=== PATIENT | male | born 1965 | race Caucasian/White ===

== ENCOUNTER → 2016-09-14 | Outpatient (REF) ==
[~2016-09-14] MED LIST: /LAMO10TA OR; /LAMO10TA PO; ABIL1TAB5 PO; ABIL400I IM; BENZ100C5 PO; BUDE150T PO; CELE40TA OR; CENTTAB47 PO; CHLORTHALIDONE; CHLORTHALIDONE PO; CIAL5TAB PO; CLAR10CA3 PO; COLA100C2 OR; EFFE150C OR; FISH300C2 OR; FISH500C PO; IBUP200T2 PO; INVE3TAB2 OR; INVE6TAB2 PO; INVE6TAB3 OR; LAMI1TAB7 PO; LORA10TA2 PO; MULTCAP PO; NICO21DI4 TD; OMEP20TA7 PO; OXCA150T OR; OXCA600T PO; PRAV40TA OR; PRAV40TA PO; PRIL20CA PO; PRIL20CA9 PO; SEROQUEL PO; TRAZ150T PO; TRAZ50TA2 PO; TRAZ50TA4 PO; VENL225T PO; VENL75TA2 PO; WELL100T PO; WELLTAB38 PO; ZIPR80CAP PO; ZYPR10TA PO; invega PO; nicorette PO
== END ==
LOC: M LAB 08:18
PROVIDERS: ATTEND Nurse Practitioner Adult Health
DX: Z02.1 Encounter for pre-employment examination (principal)

== ENCOUNTER → 2016-10-01 | Outpatient (CLI) | payer OTHER ==
--- NOTE | 2016-10-01 11:54 | REP ---
MR THORACIC SPINE WITHOUT CONTRAST: 10/01/2016 CLINICAL HISTORY: Mid-back pain. No known injury. COMPARISON. Lateral chest x-ray 06/14/2015. Cervical spine 07/17/2012. TECHNIQUE : Marker placed at the level of C7-T1 and confirmed by marine biologist images and x-rays in the cervical region showing fusion of C2 and C3. Sagittal T1, T2 and STIR images with axial T1-T2 sequences provided. These extend from C7-T1 through T12-L1. FINDINGS: The normal thoracic kyphosis is noted. Coronal images show very gentle levoconvex curve upper thoracic spine. Vertebral body heights and disc space heights are intact. There is no marrow signal abnormality and only mild loss of disc water signal at T7-T8 level. C7-T1, T1-2 and T2-3 levels are unremarkable. At T3-4, there is minimal right paracentral disc bulge not causing spinal or foraminal stenosis. At T4-5 through T12-L1, there is no disc bulge or herniation. There is no spinal or foraminal stenosis. IMPRESSION: 1. Right paracentral disc bulge at T3-4 not causing spinal or foraminal stenosis. No other finding of the thoracic spine. No intrinsic cord signal abnormality, syrinx, atrophy or mass. Conus terminates at L1. Signed by Romero Bynum MD 10/01/2016 05:06 P
== END ==
LOC: M RAD 09:58
PROVIDERS: ATTEND Nurse Practitioner Family
DX: M54.6 Pain in thoracic spine (principal); M79.1 Myalgia; M51.34 Other intervertebral disc degeneration, thoracic region

== ENCOUNTER → 2017-07-08 | Outpatient (REF) | payer OTHER ==
[~2017-07-08] MED LIST changes: +ABIL10TA9 PO; -ABIL1TAB5 PO; -INVE6TAB2 PO; +INVE6TAB3 PO; +TRAZ50TA11 PO; -TRAZ50TA4 PO
[2017-07-08 12:08] LABS: CHOLESTEROL LEVEL 136 MG/DL (<200); TRIGLYCERIDES LEVEL 112 MG/DL (<150)
== END ==
LOC: M SFHCPLAZ 09:44
PROVIDERS: ATTEND Family Medicine
DX: Z11.4 Encounter for screening for human immunodeficiency virus [HIV] (principal); Z13.220 Encounter for screening for lipoid disorders; Z11.59 Encounter for screening for other viral diseases; Z11.3 Encounter for screening for infections with a predominantly sexual mode of transmission; Z13.1 Encounter for screening for diabetes mellitus

== ENCOUNTER → 2018-01-12 | Outpatient (REF) | payer MEDICAID ==
[2018-01-12 12:06] LABS: HEMATOCRIT 43.4 % (42.0-52.0); HEMOGLOBIN 14.9 g/dl (13.5-17.5); MEAN CORPUSCULAR HEMOGLOBIN 31.8 pg (27.0-33.0); MEAN CORPUSCULAR HGB CONC 34.3 g/dl (32.0-36.5); MEAN CORPUSCULAR VOLUME 92.7 fl (80.0-96.0); PLATELET COUNT, AUTOMATED 312 10^3/uL (150-450); RED BLOOD COUNT 4.68 10^6/uL (4.30-6.10); RED CELL DISTRIBUTION WIDTH 12.3 % (11.5-14.5)
[2018-01-12 12:24] LABS: ESTIMATED AVERAGE GLUCOSE 103 MG/DL (60-110); HEMOGLOBIN A1c 5.2 %
[2018-01-12 12:34] LABS: ALBUMIN 3.8 GM/DL (3.2-5.2); ALBUMIN/GLOBULIN RATIO 0.97 (1.00-1.93); ALKALINE PHOSPHATASE 80 U/L (45-117); ALT/SGPT 19 U/L (12-78); ANION GAP 5 MEQ/L (8-16); AST/SGOT 15 U/L (7-37); BILIRUBIN,TOTAL 0.4 MG/DL (0.2-1.0); BLOOD UREA NITROGEN 12 MG/DL (7-18); CALCIUM LEVEL 9.1 MG/DL (8.5-10.1); CARBON DIOXIDE LEVEL 30 MEQ/L (21-32); CHLORIDE LEVEL 106 MEQ/L (98-107); CHOLESTEROL LEVEL 169 MG/DL (<200); CHOLESTEROL RISK RATIO 3.313 (<5); CREATININE FOR GFR 0.93 MG/DL (0.70-1.30); GLOMERULAR FILTRATION RATE > 60.0 (>56); GLUCOSE, FASTING 69 MG/DL (70-100); HDL CHOLESTEROL 51 MG/DL (>40); NON-HDL-C 118 MG/DL; POTASSIUM SERUM 4.3 MEQ/L (3.5-5.1); SODIUM LEVEL 141 MEQ/L (136-145); TOTAL PROTEIN 7.7 GM/DL (6.4-8.2); TRIGLYCERIDES LEVEL 125 MG/DL (<150)
== END ==
LOC: M SFHCPLAZ 10:12
DX: F20.3 Undifferentiated schizophrenia (principal)

== ENCOUNTER 2018-04-24 03:01 | Emergency (ER) | payer OTHER, MEDICAID, SELFPAY ==
[2018-04-24] MEDS: CETACAINE SPRAY 5GM TOP (03:30)
== END 2018-04-24 04:06 | disposition home or self-care (01) ==
LOC: M ED 03:01
DX: K08.89 Other specified disorders of teeth and supporting structures (principal); F33.9 Major depressive disorder, recurrent, unspecified; Z88.8 Allergy status to other drugs, medicaments and biological substances; Z79.899 Other long term (current) drug therapy
CPT/HCPCS: 64400

== ENCOUNTER 2018-05-12 09:24 | Outpatient (CLI) | payer OTHER | END 2018-05-17 | LOC: M SLEEP HO 09:24 | DX: G47.9 Sleep disorder, unspecified (principal) | CPT/HCPCS: G0399 ==

== ENCOUNTER 2018-07-08 10:29 | Day surgery (SDC) | payer OTHER ==
[~2018-07-08 10:29] MED LIST changes: -/LAMO10TA OR; -/LAMO10TA PO; -ABIL10TA9 PO; -ABIL400I IM; -BENZ100C5 PO; -BUDE150T PO; -CELE40TA OR; -CENTTAB47 PO; -CHLORTHALIDONE; -CHLORTHALIDONE PO; -CIAL5TAB PO; -CLAR10CA3 PO; -COLA100C2 OR; -EFFE150C OR; -FISH300C2 OR; -FISH500C PO; +GLUCAGON FOR INJ 1 MG VIAL (J1610) As Ordered; -IBUP200T2 PO; -INVE3TAB2 OR; -INVE6TAB3 OR; -INVE6TAB3 PO; -LAMI1TAB7 PO; +LIDOCAINE 2% INJ 100 MG/5 ML SDV (FOR ANES.) As Ordered; -LORA10TA2 PO; -MULTCAP PO; -NICO21DI4 TD; -OMEP20TA7 PO; -OXCA150T OR; -OXCA600T PO; -PRAV40TA OR; -PRAV40TA PO; -PRIL20CA PO; -PRIL20CA9 PO; +PROPOFOL 200 MG/20 ML VIAL As Ordered; -SEROQUEL PO; -TRAZ150T PO; -TRAZ50TA11 PO; -TRAZ50TA2 PO; -VENL225T PO; -VENL75TA2 PO; -WELL100T PO; -WELLTAB38 PO; -ZIPR80CAP PO; -ZYPR10TA PO; -invega PO; -nicorette PO
[2018-07-08] MEDS ORDERED: NS 1,000 ML IV (11:00)
[2018-07-08] MEDS ORDERED: fentaNYL 100 MCG/2 ML INJECTION (J3010) As Ordered (12:09)
== END 2018-07-08 13:17 | disposition home or self-care (01) ==
LOC: M OPP 10:29
DX: Z12.11 Encounter for screening for malignant neoplasm of colon (principal); D12.2 Benign neoplasm of ascending colon; K64.8 Other hemorrhoids; R12 Heartburn; K20.9 Esophagitis, unspecified; K21.9 Gastro-esophageal reflux disease without esophagitis; K44.9 Diaphragmatic hernia without obstruction or gangrene; M10.9 Gout, unspecified; F20.3 Undifferentiated schizophrenia; F33.9 Major depressive disorder, recurrent, unspecified; F17.210 Nicotine dependence, cigarettes, uncomplicated; F17.220 Nicotine dependence, chewing tobacco, uncomplicated; R06.83 Snoring; Z88.8 Allergy status to other drugs, medicaments and biological substances; Z79.899 Other long term (current) drug therapy
CPT/HCPCS: 45385

== ENCOUNTER → 2018-10-05 | Outpatient (REF) | payer OTHER ==
[~2018-10-05] MED LIST changes: +/LAMO10TA OR; +/LAMO10TA PO; +ABIL10TA9 PO; +ABIL400I IM; +ARIP1TAB10 PO; +BENZ100C5 PO; +BUDE150T PO; +CELE40TA OR; +CENTTAB47 PO; +CHLORTHALIDONE; +CHLORTHALIDONE PO; +CIAL5TAB PO; +CLAR10CA3 PO; +CLEO300C2 PO; +COLA100C2 OR; +EFFE150C OR; +FISH300C2 OR; +FISH500C PO; +FISH7.5C PO; -GLUCAGON FOR INJ 1 MG VIAL (J1610) As Ordered; +IBUP200T2 PO; +INVE3TAB2 OR; +INVE6TAB3 OR; +INVE6TAB3 PO; +LAMI1TAB7 PO; -LIDOCAINE 2% INJ 100 MG/5 ML SDV (FOR ANES.) As Ordered; +LORA10TA2 PO; +MELO7.5T7 PO; +MULTCAP PO; +NICO21DI4 TD; +OMEP20TA7 PO; +OXCA150T OR; +OXCA600T PO; +PRAV40TA OR; +PRAV40TA PO; +PRIL20CA PO; +PRIL20CA9 PO; -PROPOFOL 200 MG/20 ML VIAL As Ordered; +SEROQUEL PO; +TERB250T12 PO; +TRAZ-160 PO; +TRAZ150T PO; +TRAZ50TA2 PO; +TYLE325T5 PO; +VENL225T PO; +VENL75TA2 PO; +VITA500C19 PO; +WELL100T PO; +WELLTAB38 PO; +ZANTTAB PO; +ZIPR80CAP PO; +ZYPR10TA PO; +invega PO; +nicorette PO
[2018-10-05 15:57] LABS: HEMATOCRIT 45.3 % (42.0-52.0); HEMOGLOBIN 15.6 g/dl (13.5-17.5); MEAN CORPUSCULAR HEMOGLOBIN 31.3 pg (27.0-33.0); MEAN CORPUSCULAR HGB CONC 34.4 g/dl (32.0-36.5); MEAN CORPUSCULAR VOLUME 90.8 fl (80.0-96.0); PLATELET COUNT, AUTOMATED 409 10^3/uL (150-450); RED BLOOD COUNT 4.99 10^6/uL (4.30-6.10); WHITE BLOOD COUNT 9.8 10^3/uL (4.0-10.0)
[2018-10-05 16:02] LABS: ALBUMIN 3.7 GM/DL (3.2-5.2); ALT/SGPT 26 U/L (12-78); BILIRUBIN,TOTAL 0.5 MG/DL (0.2-1.0); BLOOD UREA NITROGEN 11 MG/DL (7-18); CALCIUM LEVEL 9.4 MG/DL (8.5-10.1); CARBON DIOXIDE LEVEL 29 MEQ/L (21-32); CHLORIDE LEVEL 102 MEQ/L (98-107); CHOLESTEROL LEVEL 187 MG/DL (<200); CHOLESTEROL RISK RATIO 3.978 (<5); CREATININE FOR GFR 1.16 MG/DL (0.70-1.30); GLOMERULAR FILTRATION RATE > 60.0 (>56); GLUCOSE, FASTING 102 MG/DL (70-100); HDL CHOLESTEROL 47 MG/DL (>40); LDL CHOLESTEROL 91 MG/DL (<100); NON-HDL-C 140 MG/DL; POTASSIUM SERUM 4.2 MEQ/L (3.5-5.1); SODIUM LEVEL 137 MEQ/L (136-145); TOTAL PROTEIN 7.5 GM/DL (6.4-8.2); TRIGLYCERIDES LEVEL 244 MG/DL (<150)
[2018-10-05 16:25] LABS: HEMOGLOBIN A1c 5.3 %
== END ==
LOC: M LABDRAWP 14:01
PROVIDERS: ATTEND Psychiatry & Neurology Psychiatry
DX: F20.9 Schizophrenia, unspecified (principal); F33.9 Major depressive disorder, recurrent, unspecified

== ENCOUNTER → 2018-11-12 | Outpatient (CLI) | payer OTHER ==
--- NOTE | 2018-11-15 16:26 | SLEEPCENT ---
DATE OF PROCEDURE: 11/12/2018 ORDERED BY: MAZIN Adorno Nocturnal polysomnography was performed for the titration of pressure therapy in this patient with clinical diagnosis of obstructive sleep apnea syndrome confirmed by home testing revealing a respiratory event index of 19.1. For testing a [employer] and [employer] Simplus full face mask of small size was used; 4 cm of water pressure were applied to the circuit and the lights were extinguished. 7 hours and 23 minutes of data were reviewed. There were 288 minutes of sleep identified. Sleep latency was prolonged at 110.5 minutes. Rapid eye movement (REM) latency was prolonged at 199 minutes. Sleep architecture improved late in the study on optimal pressure therapy. Overall sleep efficiency was 66.5%. The electrocardiogram showed a sinus rhythm with an average heart rate of 62 beats per minute. EEG showed normal waveforms for awake and sleep. Respiratory events were best palliated with CPAP at a pressure of +9. There was some limb activity noted in the EMG, particularly early in the study and limb movement arousal index was borderline at 6.7. IMPRESSION: Obstructive sleep apnea syndrome (G47.33). RECOMMENDATIONS: Nightly use of pressure therapy 9 cm of water.
== END ==
LOC: M SLEEP 20:00
PROVIDERS: ATTEND Physician Assistant
DX: G47.33 Obstructive sleep apnea (adult) (pediatric) (principal)

== ENCOUNTER 2018-12-29 12:48 | Day surgery (SDC) | payer OTHER ==
[~2018-12-29] VITALS: Ht 170.2 cm; Wt 89.8 kg
[~2018-12-29 12:48] MED LIST changes: -/LAMO10TA OR; -/LAMO10TA PO; +ABIL1INJ2; +LAMI1TAB7 OR; -VENL225T PO; +VENL225T25 PO
[2018-12-29] MEDS ORDERED: NS 1,000 ML IV ONE (13:45)
[2018-12-29] MEDS ORDERED: LIDOCAINE 2% INJ 100 MG/5 ML SDV (FOR ANES.) As Ordered ONE (14:26)
[2018-12-29] MEDS ORDERED: PROPOFOL 500 MG/50 ML VIAL As Ordered ONE (14:26)
[2018-12-29] MEDS ORDERED: fentaNYL 100 MCG/2 ML INJECTION (J3010) As Ordered ONE (14:26)
--- NOTE | 2018-12-29 14:41 | ROOR ---
Patient Name: Chester Salazar Procedure Date: 12/29/2018 2:17 PM Date of : 1965 Age: 53 Room: [facility] Gender: Male Note Status: Finalized Procedure: Upper GI endoscopy Indications: Surveillance procedure, Follow-up of esophageal ulcer Providers: Radhames HUBER MD Referring MD: [facility] ARLETTELowman Requesting Provider: Medicines: Monitored Anesthesia Care Complications: No immediate complications. Procedure: Pre-Anesthesia Assessment: - The heart rate, respiratory rate, oxygen saturations, blood pressure, adequacy of pulmonary ventilation, and response to care were monitored throughout the procedure. - The heart rate, respiratory rate, oxygen saturations, blood pressure, adequacy of pulmonary ventilation, and response to care were monitored throughout the procedure. The Endoscope was introduced through the mouth, and advanced to the second part of duodenum. The upper GI endoscopy was accomplished without difficulty. The patient tolerated the procedure well. Findings: A small hiatal hernia was present. The esophagus was normal. The stomach was normal. The examined duodenum was normal. Impression: - Normal esophagus. (previously seen nodularity/ulcer has healed completely) - Normal stomach. - Small sliding hiatal hernia. - Normal examined duodenum. - No specimens collected. Recommendation: - Continue present medications. - I anticipate no further need for intervention. - Return to referring physician as previously scheduled. Radhames Huber MD Radhames HUBER MD 12/29/2018 2:40:42 PM Electronically signed by Radhames HUBER MD Number of Addenda: 0 Note Initiated On: 12/29/2018 2:17 PM Estimated Blood Loss: Estimated blood loss: none.
[2018-12-29 14:50] VITALS: BP 122/76
== END 2018-12-29 15:04 | disposition home or self-care (01) ==
LOC: M OPP 12:48
PROVIDERS: ATTEND Internal Medicine Gastroenterology
DX: K44.9 Diaphragmatic hernia without obstruction or gangrene (principal)
CPT/HCPCS: 43235; J3010

== ENCOUNTER → 2020-03-18 | Outpatient (CLI) | payer OTHER ==
[~2020-03-18] MED LIST changes: -TRAZ-160 PO; +TRAZ-252 PO; +ZANT150T40 PO; -ZANTTAB PO
[2020-03-18 12:34] LABS: HEMATOCRIT 48.3 % (42.0-52.0); MEAN CORPUSCULAR HEMOGLOBIN 31.1 pg (27.0-33.0); MEAN CORPUSCULAR HGB CONC 33.1 g/dl (32.0-36.5); MEAN CORPUSCULAR VOLUME 93.8 fl (80.0-96.0); PLATELET COUNT, AUTOMATED 333 10^3/uL (150-450); RED BLOOD COUNT 5.15 10^6/uL (4.30-6.10); WHITE BLOOD COUNT 8.9 10^3/uL (4.0-10.0)
[2020-03-18 12:43] LABS: ALBUMIN 3.6 GM/DL (3.2-5.2); ALT/SGPT 22 U/L (12-78); BILIRUBIN,TOTAL 0.4 MG/DL (0.2-1.0); BLOOD UREA NITROGEN 13 MG/DL (7-18); CALCIUM LEVEL 9.8 MG/DL (8.5-10.1); CARBON DIOXIDE LEVEL 29 MEQ/L (21-32); CHLORIDE LEVEL 105 MEQ/L (98-107); CREATININE FOR GFR 1.22 MG/DL (0.70-1.30); GLOMERULAR FILTRATION RATE > 60.0 (>56); GLUCOSE, FASTING 82 MG/DL (70-100); POTASSIUM SERUM 4.7 MEQ/L (3.5-5.1); SODIUM LEVEL 139 MEQ/L (136-145); TOTAL PROTEIN 7.9 GM/DL (6.4-8.2)
[2020-03-18 12:50] LABS: HEMOGLOBIN A1c 5.2 %
== END ==
LOC: M PLALAB 10:14
PROVIDERS: ATTEND Student in an Organized Health Care Education/Training Program
DX: F25.0 Schizoaffective disorder, bipolar type (principal); Z56.9 Unspecified problems related to employment; Z63.0 Problems in relationship with spouse or partner; F17.200 Nicotine dependence, unspecified, uncomplicated

== ENCOUNTER → 2020-07-22 | Outpatient (REF) | payer OTHER | LOC: M SFHCPLAZ 11:39 | PROVIDERS: ATTEND Family Medicine | DX: Z00.01 Encounter for general adult medical examination with abnormal findings (principal); F31.70 Bipolar disorder, currently in remission, most recent episode unspecified; E78.2 Mixed hyperlipidemia; I10 Essential (primary) hypertension; Z53.9 Procedure and treatment not carried out, unspecified reason ==

== ENCOUNTER → 2020-09-25 | Outpatient (CLI) | payer OTHER ==
[2020-09-25 15:54] LABS: CHOLESTEROL RISK RATIO 3.75 (<5)
[2020-09-25 15:56] LABS: HEMOGLOBIN A1c 5.3 %
== END ==
LOC: M PLALAB 14:02
PROVIDERS: ATTEND Student in an Organized Health Care Education/Training Program
DX: F25.0 Schizoaffective disorder, bipolar type (principal); Z56.9 Unspecified problems related to employment; Z63.0 Problems in relationship with spouse or partner; F17.200 Nicotine dependence, unspecified, uncomplicated

== ENCOUNTER → 2020-09-25 | Outpatient (REF) | payer OTHER ==
[2020-09-25 15:21] LABS: BASO # 0.1 10^3/uL (0.0-0.2); EOS # 0.2 10^3/uL (0.0-0.5); EOS % 1.8 % (0.0-3.0); HEMATOCRIT 47.3 % (42.0-52.0); HEMOGLOBIN 15.8 g/dl (13.5-17.5); LYMPH % 34.2 % (24.0-44.0); MEAN CORPUSCULAR HEMOGLOBIN 30.9 pg (27.0-33.0); MEAN CORPUSCULAR HGB CONC 33.4 g/dl (32.0-36.5); MEAN CORPUSCULAR VOLUME 92.4 fl (80.0-96.0); MONO # 0.7 10^3/uL (0.0-0.8); MONO % 7.5 % (0.0-5.0); NEUTROPHILS # 4.9 10^3/uL (1.5-8.5); NEUTROPHILS % 55.1 % (36.0-66.0); PLATELET COUNT, AUTOMATED 360 10^3/uL (150-450); RED BLOOD COUNT 5.12 10^6/uL (4.30-6.10); WHITE BLOOD COUNT 8.9 10^3/uL (4.0-10.0)
[2020-09-25 16:01] LABS: ALBUMIN 4.1 GM/DL (3.2-5.2); ALT/SGPT 25 U/L (12-78); BILIRUBIN,TOTAL 0.4 MG/DL (0.2-1.0); BLOOD UREA NITROGEN 7 MG/DL (7-18); CALCIUM LEVEL 9.8 MG/DL (8.5-10.1); CARBON DIOXIDE LEVEL 31 MEQ/L (21-32); CHLORIDE LEVEL 103 MEQ/L (98-107); CHOLESTEROL LEVEL 171 MG/DL (<200); CHOLESTEROL RISK RATIO 3.976 (<5); CREATININE FOR GFR 1.18 MG/DL (0.70-1.30); GLOMERULAR FILTRATION RATE > 60.0 (>56); GLUCOSE, FASTING 82 MG/DL (70-100); HDL CHOLESTEROL 43 MG/DL (>40); LDL CHOLESTEROL 102 MG/DL (<100); NON-HDL-C 128 MG/DL; POTASSIUM SERUM 4.3 MEQ/L (3.5-5.1); SODIUM LEVEL 138 MEQ/L (136-145); TOTAL PROTEIN 7.8 GM/DL (6.4-8.2); TRIGLYCERIDES LEVEL 129 MG/DL (<150)
== END ==
LOC: M SFHCPLAZ 14:02
PROVIDERS: ATTEND Family Medicine
DX: Z00.01 Encounter for general adult medical examination with abnormal findings (principal); F31.70 Bipolar disorder, currently in remission, most recent episode unspecified; E78.2 Mixed hyperlipidemia; I10 Essential (primary) hypertension

== ENCOUNTER → 2020-11-20 | Outpatient (CLI) | payer OTHER ==
[2020-11-20 15:36] LABS: HEMATOCRIT 45.8 % (42.0-52.0); HEMOGLOBIN 14.9 g/dl (13.5-17.5); MEAN CORPUSCULAR HEMOGLOBIN 30.7 pg (27.0-33.0); MEAN CORPUSCULAR HGB CONC 32.5 g/dl (32.0-36.5); MEAN CORPUSCULAR VOLUME 94.2 fl (80.0-96.0); PLATELET COUNT, AUTOMATED 332 10^3/uL (150-450); RED BLOOD COUNT 4.86 10^6/uL (4.30-6.10); WHITE BLOOD COUNT 6.6 10^3/uL (4.0-10.0)
[2020-11-20 16:06] LABS: ALBUMIN 3.8 GM/DL (3.2-5.2); ALT/SGPT 26 U/L (12-78); BILIRUBIN,DIRECT 0.1 MG/DL (0.0-0.2); BILIRUBIN,TOTAL 0.3 MG/DL (0.2-1.0); BLOOD UREA NITROGEN 9 MG/DL (7-18); CALCIUM LEVEL 9.4 MG/DL (8.5-10.1); CARBON DIOXIDE LEVEL 31 MEQ/L (21-32); CHLORIDE LEVEL 105 MEQ/L (98-107); CREATININE FOR GFR 1.14 MG/DL (0.70-1.30); GLOMERULAR FILTRATION RATE > 60.0 (>56); GLUCOSE, FASTING 67 MG/DL (70-100); PHOSPHORUS LEVEL 3.1 MG/DL (2.5-4.9); POTASSIUM SERUM 4.3 MEQ/L (3.5-5.1); SODIUM LEVEL 140 MEQ/L (136-145); TOTAL PROTEIN 7.5 GM/DL (6.4-8.2)
== END ==
LOC: M PLALAB 14:04
PROVIDERS: ATTEND Podiatrist Foot & Ankle Surgery
DX: B35.1 Tinea unguium (principal); Z79.899 Other long term (current) drug therapy

== ENCOUNTER → 2021-02-03 | Outpatient (CLI) | payer OTHER ==
[2021-02-03 13:57] LABS: BLOOD UREA NITROGEN 12 MG/DL (7-18); CALCIUM LEVEL 9.5 MG/DL (8.5-10.1); CARBON DIOXIDE LEVEL 28 MEQ/L (21-32); CHLORIDE LEVEL 105 MEQ/L (98-107); CHOLESTEROL LEVEL 185 MG/DL (<200); CHOLESTEROL RISK RATIO 3.775 (<5); CREATININE FOR GFR 1.27 MG/DL (0.70-1.30); GLOMERULAR FILTRATION RATE > 60.0 (>56); GLUCOSE, FASTING 162 MG/DL (70-100); HDL CHOLESTEROL 49 MG/DL (>40); LDL CHOLESTEROL 113 MG/DL (<100); NON-HDL-C 136 MG/DL; POTASSIUM SERUM 4.4 MEQ/L (3.5-5.1); SODIUM LEVEL 138 MEQ/L (136-145); TRIGLYCERIDES LEVEL 114 MG/DL (<150)
== END ==
LOC: M PLALAB 12:16
PROVIDERS: ATTEND Student in an Organized Health Care Education/Training Program
DX: F25.0 Schizoaffective disorder, bipolar type (principal); Z56.9 Unspecified problems related to employment; Z63.0 Problems in relationship with spouse or partner; F17.200 Nicotine dependence, unspecified, uncomplicated

== ENCOUNTER → 2021-10-17 | Outpatient (CLI) | payer OTHER ==
[~2021-10-17] MED LIST changes: -TERB250T12 PO; +TERB250T91 PO
== END ==
LOC: M RAD 12:25
PROVIDERS: ATTEND Student in an Organized Health Care Education/Training Program
DX: Z12.2 Encounter for screening for malignant neoplasm of respiratory organs (principal); R91.8 Other nonspecific abnormal finding of lung field

== ENCOUNTER → 2022-05-11 | Outpatient (CLI) | payer OTHER ==
[~2022-05-11] MED LIST changes: +FISH10005 PO; -FISH7.5C PO
== END ==
LOC: M CARPUL 09:46
PROVIDERS: ATTEND Student in an Organized Health Care Education/Training Program
DX: R05.3 Chronic cough (principal)

== ENCOUNTER → 2022-05-20 | Outpatient (CLI) | payer OTHER | LOC: M SLEEP 20:00 | PROVIDERS: ATTEND Physician Assistant | DX: G47.33 Obstructive sleep apnea (adult) (pediatric) (principal) ==

== ENCOUNTER → 2023-08-19 | Outpatient (CLI) | payer OTHER ==
[~2023-08-19] MED LIST changes: +ATOR1TAB21 PO; +FLUC150T9 PO; +INCR1INH INH; +OMEP1CAP73 PO; +PROA1AER2 INH; -VENL225T25 PO; +VENL225T32 PO
[2023-08-19 19:09] LABS: BLOOD UREA NITROGEN 10 MG/DL (9-23); CALCIUM LEVEL 9.1 MG/DL (8.5-10.1); CARBON DIOXIDE LEVEL 29 MMOL/L (20-31); CHLORIDE LEVEL 102 MMOL/L (98-107); GLOMERULAR FILTRATION RATE > 60.0 (>56); GLUCOSE, FASTING 51 MG/DL (60-100); POTASSIUM SERUM 4.7 MMOL/L (3.5-5.1); SODIUM LEVEL 138 MMOL/L (136-145)
[2023-08-19 19:16] LABS: HEMOGLOBIN A1c 5.3 % (4.0-6.0)
== END ==
LOC: M PLALAB 15:36
PROVIDERS: ATTEND Student in an Organized Health Care Education/Training Program
DX: R35.89 Other polyuria (principal); R63.1 Polydipsia

== ENCOUNTER → 2023-08-19 | Outpatient (REF) | payer OTHER | LOC: M SFHCPLAZ 15:23 | PROVIDERS: ATTEND Internal Medicine Hematology | DX: R35.89 Other polyuria (principal); R63.1 Polydipsia ==

== ENCOUNTER 2023-11-30 06:55 | Day surgery (SDC) | payer OTHER ==
[~2023-11-30] VITALS: Ht 170.2 cm; Wt 93.0 kg
[2023-11-30] MEDS: NS 1,000 ML IV ONE (07:29)
[2023-11-30] MEDS ORDERED: LIDOCAINE 2% 100MG/5ML SDV (FOR ANES.) As Ordered ONE (08:11)
[2023-11-30] MEDS ORDERED: propofoL 200 MG/20 ML VIAL As Ordered ONE (08:11)
[2023-11-30 08:40] VITALS: BP 125/73; TEMP 97.7; O2SAT 99
== END 2023-11-30 09:00 | disposition home or self-care (01) ==
LOC: M OPP 06:55
PROVIDERS: ATTEND Internal Medicine Gastroenterology
DX: Z12.11 Encounter for screening for malignant neoplasm of colon (principal); K57.30 Diverticulosis of large intestine without perforation or abscess without bleeding; Z86.010 Personal history of colon polyps; K21.9 Gastro-esophageal reflux disease without esophagitis; J44.9 Chronic obstructive pulmonary disease, unspecified; E78.00 Pure hypercholesterolemia, unspecified; G47.30 Sleep apnea, unspecified; Z79.899 Other long term (current) drug therapy; Z87.891 Personal history of nicotine dependence; Z88.8 Allergy status to other drugs, medicaments and biological substances

== ENCOUNTER 2024-10-03 19:33 | Emergency (ER) | payer OTHER ==
[~2024-10-03] VITALS: Ht 170.2 cm; Wt 94.2 kg
[~2024-10-03 19:33] MED LIST changes: -VITA500C19 PO; +VITA500C22 PO
[2024-10-03 19:36] VITALS: BP 152/104; TEMP 97; O2SAT 98
[2024-10-03] MEDS: BOOSTRIX VACCINE (TETANUS/DIPHTH/ACEL. PERTUSSIS) 0.5ML SYR IM.IMMUN ONE (20:50)
[2024-10-03] MEDS: LIDOCAINE 1% MDV 20ML VIAL SC ONE (20:52)
[2024-10-03] MEDS: BACITRACIN OINTMENT 30GM TUBE TOP ONE (20:52)
[2024-10-03] MEDS ORDERED: CEPH500C PO (21:24)
== END 2024-10-03 21:39 | disposition home or self-care (01) ==
LOC: M ED 19:33
DX: S61.210A Laceration without foreign body of right index finger without damage to nail, initial encounter (principal); S61.212A Laceration without foreign body of right middle finger without damage to nail, initial encounter; S61.214A Laceration without foreign body of right ring finger without damage to nail, initial encounter; Y92.019 Unspecified place in single-family (private) house as the place of occurrence of the external cause; Y93.9 Activity, unspecified; Y99.9 Unspecified external cause status; Z88.8 Allergy status to other drugs, medicaments and biological substances; Z79.2 Long term (current) use of antibiotics; Z79.899 Other long term (current) drug therapy

== ENCOUNTER → 2024-11-17 | Outpatient (REF) | payer OTHER ==
[~2024-11-17] MED LIST changes: +CEPH500C PO
[2024-11-17 15:49] LABS: BASO # 0.1 10^3/uL (0.0-0.2); BASO % 0.9 % (0.0-1.0); EOS # 0.3 10^3/uL (0.0-0.5); EOS % 2.6 % (0.0-3.0); HEMATOCRIT 50.6 % (42.0-52.0); HEMOGLOBIN 16.7 g/dl (13.5-17.5); LYMPH # 3.4 10^3/uL (1.5-5.0); LYMPH % 34.1 % (24.0-44.0); MEAN CORPUSCULAR HEMOGLOBIN 30.8 pg (27.0-33.0); MEAN CORPUSCULAR VOLUME 93.4 fl (80.0-96.0); MONO # 0.7 10^3/uL (0.0-0.8); MONO % 7.2 % (2.0-8.0); NEUTROPHILS # 5.4 10^3/uL (1.5-8.5); NEUTROPHILS % 54.8 % (36.0-66.0); PLATELET COUNT, AUTOMATED 385 10^3/uL (150-450); RED BLOOD COUNT 5.42 10^6/uL (4.30-6.10); WHITE BLOOD COUNT 9.8 10^3/uL (4.0-10.0)
[2024-11-17 15:53] LABS: ALBUMIN 3.8 G/DL (3.2-5.2); BILIRUBIN,TOTAL 0.6 MG/DL (0.3-1.2); CALCIUM LEVEL 9.6 MG/DL (8.5-10.1); CHOLESTEROL RISK RATIO 3.74 (<5); CREATININE FOR GFR 1.33 MG/DL (0.70-1.30); HDL CHOLESTEROL 46.5 MG/DL (>40); LDL CHOLESTEROL 101.3 MG/DL (<100); NON-HDL-C 127.5 MG/DL; POTASSIUM SERUM 4.2 MMOL/L (3.5-5.1)
[2024-11-17 15:55] LABS: FREE T4 1.22 NG/DL (0.89-1.76); THYROID STIMULATING HORMONE 1.336 uIU/ML (0.55-4.78)
== END ==
LOC: M LAB REF 14:56
PROVIDERS: ATTEND Family Medicine Addiction Medicine
DX: R53.81 Other malaise (principal); R53.83 Other fatigue; Z68.33 Body mass index [BMI] 33.0-33.9, adult

== ENCOUNTER 2025-01-14 13:28 | Emergency (ER) | payer OTHER ==
[~2025-01-14] VITALS: Ht 167.6 cm; Wt 94.4 kg
[~2025-01-14 13:28] MED LIST changes: +VENL225T PO; -VENL225T32 PO
[2025-01-14 13:33] VITALS: BP 160/88; TEMP 97.4; O2SAT 100
[2025-01-14] MEDS ORDERED: KETO-204 PO (15:59)
[2025-01-14] MEDS ORDERED: AMOX875T2 PO (15:59)
[2025-01-14] MEDS: KETOROLAC 30 MG/ML 1ML VIAL IM ONE (16:12)
[2025-01-14] MEDS: AUGMENTIN 875 MG TAB PO ONE (16:12)
== END 2025-01-14 16:23 | disposition home or self-care (01) ==
LOC: M ED 13:28
DX: K08.89 Other specified disorders of teeth and supporting structures (principal); J44.9 Chronic obstructive pulmonary disease, unspecified; Z88.8 Allergy status to other drugs, medicaments and biological substances; Z79.2 Long term (current) use of antibiotics; Z79.899 Other long term (current) drug therapy
CPT/HCPCS: 96372; 99283; J1885